=== PATIENT | female | born 1980 | race Caucasian/White ===

== ENCOUNTER 2021-05-20 10:53 | Outpatient (CLI) | payer BC, SELFPAY ==
[2021-05-20 11:21] LABS: Hematocrit 39.5 % (35.0-49.0); Mean Corpuscular HGB Conc 32.9 g/dL (32.0-36.0); Mean Corpuscular Hemoglobin 29.5 pg (27.0-31.0); Mean Corpuscular Volume 89.6 fL (78.0-102.0); Mean Platelet Volume 8.6 fl (9.2-11.8); Platelet Count Result 215 K/mm3 (150-420); Red Blood Count 4.41 M/mm3 (4.20-5.40); White Blood Count 5.1 K/mm3 (4.8-10.8)
== END 2021-05-20 10:54 | disposition home or self-care (01) ==
LOC: CHSLAB 10:58
PROVIDERS: PCP Family Medicine; Visit Provider Student in an Organized Health Care Education/Training Program
DX: N93.9 Abnormal uterine and vaginal bleeding, unspecified (principal); N39.3 Stress incontinence (female) (male)
CPT/HCPCS: 36415; 85027; 87086

== ENCOUNTER 2021-05-23 00:17 | Day surgery (SDC) | payer BC, SELFPAY ==
[2021-05-15 14:42] VITALS: BMI 25.8
--- NOTE | 2021-05-15 14:53 | PC.NURSE ---
Report to the Outpatient Waiting Room, entrance under the green pavilion located off [facility], at time 1000 on date 05/23/21. OR Time: 1200. - You and your visitor will be asked a series of questions to screen for COVID 19 for your protection. - A mask is required within the hospital. One visitor will be allowed to accompany the patient into the hospital. Patients visitor will be instructed to remain with patient at all times or leave the building. We will allow the visitor to come back to the postoperative area when patient is ready. Preoperative COVID Testing Requirements: No COVID Test needed if: (proof is required; if not received patient will have Rapid Test prior to entry) - Patient has received COVID Vaccine at least 14 days prior to procedure date or - Patient has positive COVID test result within last 90 days of surgery date. COVID Test needed if above criteria is not met Patients may have clear liquids (water, carbonated beverages, clear teas, apple juice) until 3 hours prior to surgery with a maximum of 20 ounces. - No food from midnight until time of surgery Take the following medications with a SIP of water the morning of surgery: NONE Medications to discontinue per physician: VITAMINS/SUPPLEMENTS Date to take last dose: 05/19/21 Please no make-up, nail azeri, hairspray, perfume, deodorant, or body powder the day of surgery. No jewelry (including any body piercings) or valuables the day of surgery, leave them at home. Please take a shower or bath the night before, or the morning of, surgery with an antibacterial soap. Wear comfortable, loose fitting clothing. - Jewelry must be removed prior to entering the operating room. Rings and piercings that are not removed may be cut off. - The hospital will not accept responsibility for valuables. - Please leave all valuables, including medications, at home the day of surgery. If you are going home after surgery, a licensed jinrikisha driver must drive you home. - NO public transportation without another adult. - We recommend that an adult stay with you for 24 hours following discharge. - We also recommend that you do not drive, make important decision, drink alcoholic beverages, or take any drugs that were not prescribed by your health care provider for at least 24 hours after your discharge time. Follow any additional instructions given to you from your surgeon. Telephone instructions given to HUNTER REESE and asked if any additional questions and then verbalized understanding. Patient advised to call surgeon office or pre surgery nurse liaison [phone] if any additional questions.
--- NOTE | 2021-05-22 09:11 | PM.IMHP ---
H&P: HPI History of Present Illness Date/Time: 05/22/21 09:11 Chief Complaint: abnormal uterine bleeding Narrative: 40 yo who presents for robotic TLH/BS, TVT, and cystoscopy for AUB and TERRANCE. Pt has been dealing with heavy painful menses for some. Pt has tried hormonal contraceptives and currently has an IUD in place. Pt continues to have heavy bleeding. Pt declined endometrial ablation and preferred hysterectomy. Pt also complaining of stress urinary incontinence. Review of Systems Cardiovascular: Cardiovascular: Denies chest pain, Denies leg edema, Denies palpitations, Denies dyspnea and Denies dyspnea on exertion Respiratory: Respiratory: Denies cough, Denies dyspnea and Denies dyspnea on exertion Gastrointestinal: Gastrointestinal: Denies abdominal pain, Denies constipation, Denies diarrhea, Denies nausea and Denies vomiting Genitourinary: Genitourinary: Denies hematuria, Denies urinary frequency, Denies dysuria, Denies pelvic pain, Denies urinary incontinence and Denies vaginal discharge Neurologic: Reports system reviewed and no additional complaints, except as documented Psychiatric: Psychiatric: Reports no additional psychiatric complaints Endocrine: Endocrine: Denies palpitations PMFSH Social History Social History Years smoked: 4 Smoking status: Current every day smoker Tobacco type: cigarettes Alcohol intake: never Substance use: never Substance use type: does not use Spiritual care concerns: No Meds Home Medications and Allergies Home Medications Medication Instructions Recorded Confirmed Type alprazolam 0.5 mg PO HS PRN 05/15/21 05/15/21 History buspirone 15 mg PO HS PRN 05/15/21 05/15/21 History fluoxetine 20 mg PO HS 05/15/21 05/15/21 History hydroxyzine HCl 50 mg PO HS PRN 05/15/21 05/15/21 History melatonin 10 mg PO HS PRN 05/15/21 05/15/21 History Allergies Allergy/AdvReac Type Severity Reaction Status Date / Time No Known Allergies Allergy Verified 05/15/21 14:38 Exam Const: General: no acute distress Eyes: EOM: EOMs intact bilaterally Neck: Neck: supple Thyroid: thyroid normal Chest: Breast/axilla inspection: normal inspection of the breasts Breast/axilla palpation: normal palpation of the breasts, normal palpation of the axillae and no axillary lymphadenopathy Resp: Effort & Inspection: normal respiratory effort Auscultation: clear to auscultation bilaterally Cardio: Rate: regular rate Rhythm: regular rhythm GI: Inspection: non-distended GI Palp: Yes Soft to palpation, No Tenderness to palpation present (GI) and No Guarding due to palpation present (GI) Auscultation: normal bowel sounds : General: No bladder normal to palpation External Female Exam: normal external appearance Speculum Exam - Vagina: normal vaginal discharge and No vaginal bleeding Speculum Exam - Cervix: nontender Bimanual exam- vagina & uterus: No bladder normal to palpation and No Cervical tenderness present OB/external & speculum: No vaginal bleeding Skin: General skin exam: normal color and no rashes or lesions noted Neuro: Cognition (Neuro): normal cognition Speech: normal speech Extrem: General: normal to inspection and no edema Psych: Mental Status: mental status grossly normal Affect: normal affect Assessment and Plan Assessment and plan (1) Abnormal uterine bleeding (AUB): Code(s): N93.9 - Abnormal uterine and vaginal bleeding, unspecified Status: Acute Assessment and Plan: pt with long history of heavy painful menses currently has IUD with heavy break trhough bleeding failed hormonal contraceptives Pt declined endometrial ablation pelvic US shows uterus measuring 8.6x4.3x2.9 cm. IUD seen within [facility] plan for robotic TLH/BS (2) TERRANCE (stress urinary incontinence, female): Code(s): N39.3 - Stress incontinence (female) (male) Status: Acute Assessment and Plan: pt complaining of bothersome TERRANCE discussed lifestyle
[2021-05-23] VITALS (10 sets, daily range): BP systolic 104–132; BP diastolic 64–82; PULSE 73–106; RESP 16–20; TEMP 36.4–37.3; O2SAT 92–98
[2021-05-23] MEDS: ACETAMINOPHEN 500 MG TABLET 1000 MG PO (10:07)
[2021-05-23] MEDS: LACTATED RINGERS 1,000 ML 30 ML IV CONT ×2 (10:35→14:26)
[2021-05-23] MEDS: KETOROLAC 15 MG/ML VIAL (*BKC) IV PUSH (10:52)
--- NOTE | 2021-05-23 11:08 | WPDANESEPPF ---
Anes - Initial Pre Proc Eval Procedure: Operation Date: 05/23/21 12:00 Proposed Procedures p Robotic Total Vaginal Hysterectomy with Bilateral Salpingectomy - Ramirez An MD s Cystoscopy - Ramirez An MD s Tension Vaginal Taping - Ramirez An MD Date/Time: 05/23/21 11:08 Surgeon: Ramirez An MD Pre Op Diagnosis: Abnormal Uterine Bleeding, Stress Incont Patient Data Age: 40 Gender: F Height: 1.68 m Weight: 78.8 kg Last Vital Signs Temp 37.3 C 05/23/21 10:01 Pulse 77 05/23/21 10:01 Resp 20 05/23/21 10:01 BP 107/69 05/23/21 10:01 Pulse Ox 98 05/23/21 10:01 Allergies Allergy/AdvReac Type Severity Reaction Status Date / Time No Known Allergies Allergy Verified 05/15/21 14:38 Home Medications Medication Instructions Recorded Confirmed Type alprazolam 0.5 mg PO HS PRN 05/15/21 05/23/21 History buspirone 15 mg PO HS PRN 05/15/21 05/23/21 History fluoxetine 20 mg PO HS 05/15/21 05/23/21 History hydroxyzine HCl 50 mg PO HS PRN 05/15/21 05/23/21 History melatonin 10 mg PO HS PRN 05/15/21 05/23/21 History Patient hx anesthesia problems: none Family hx anesthesia problems: none Results Review: All pre-operative results and documents have been reviewed as part of the pre-operative evaluation. [facility] Past Medical History Medical History (Updated 05/23/21 @ 11:08 by Rojas Craig MD) Anxiety Melanoma Overweight Surgical History Surgical History (Updated 05/23/21 @ 11:11 by Rojas Craig MD) H/O melanoma excision History of section Social History Social History Years smoked: 4 Smoking status: Current every day smoker Tobacco type: cigarettes Alcohol intake: never Substance use: never Substance use type: does not use Living arrangements: with family Spiritual care concerns: No Anes - Eval Final PreProcedure Day of Procedure 05/23/21 11:08 Patient weight: overweight Heart: regular rate and rhythm Lungs: clear to auscultation Airway: Mallampati scale class 1 Neurological: alert and oriented Last oral intake: >/= 8 hours ASA classification: II Emergent: no Anesthetic plan: proceed Anesthesia type and monitoring: general ETT and standard monitoring Results Review: All pre-operative results and documents have been reviewed as part of the pre-operative evaluation. Informed Consent: The patient's anesthetic plan and its attendant risks and benefits were discussed with the patient/family/POA. Questions were solicited and answers provided to the satisfaction of the patient/family/POA.
--- NOTE | 2021-05-23 11:48 | WPDHPUPDATE1 ---
History and Physical Update Update Date/Time: 05/23/21 11:48 History and Physical has been reviewed, including an updated exam of the patient. There are NO changes in the patient's condition. Risks, benefits, and alternatives have been discussed and questions answered. Patient agrees to proceed with procedure.
[2021-05-23] MEDS: ceFAZolin 2 GM/D5W 50 ML 2 GM/50 ML BAG IVPB (12:08)
[2021-05-23] MEDS: LIDO 1%/EPINEPHRINE 1:100,000 50 ML VIAL 30 ML INFILTRATE (13:10)
--- NOTE | 2021-05-23 14:14 | W.PM.PROC2 ---
Procedure Note - Detailed Date of Procedure 05/23/21 Pre-op Diagnosis Abnormal Uterine Bleeding, Stress Incont Post-op Diagnosis same Procedure Performed robotic assisted total laparoscopic hysterectomy and bilateral salpingectomy, TVT mid-urethral sling, cystoscopy Surgeon Ramirez An MD Anesthesia general Description of Procedure After the patient was appropriately consented she was taken to the operating room where she was transferred to the table in a dorsal supine position. General anesthesia was then induced with endotracheal intubation. The patient was transferred to a dorsal lithotomy position using adjustable yellow-fin stirrups. Her position was adjusted for appropriate support of her lower back and lower extremities. The patient was prepped and draped. A transurethral rooney catheter was place. The cervix was sequentially dilated and a PHILIP uterine manipulator placed in typical fashion about a 3cm JOZEF ring. Gloves were changed. After confirmation of a functioning orogastric tube, lidocaine was injected at Oliveira's point in the LUQ and a 5mm incision was made. A 5mm Optiview trocar was then inserted into the abdominal cavity under direct visualization and done so without complication. The abdomen was then insufflated with approximately 2-3L of CO2 establishing a pneumoperitoneum and the patient was placed in Trendelenburg position. Just above the umbilicus in the midline, a 10mm incision made after injection of lidocaine and a 12mm bladeless trocar advanced into the abdominal cavity under direct visualization without incident. We subsequently placed two robotic ports in a similar fashion, one in the left mid-quadrant and one in the right, 10cm lateral to the midline port. The robot was then docked. Attention was turned to the left pelvis. The left fallopian tube was removed by sequentially dividing the mesosalpinx towards the uterus sparing the ovary. The utero-ovarian ligament was desiccated and transected, as was the round ligament. The posterior peritoneal leaf was taken down to the JOZEF ring. The anterior leaf was developed as well as the start of the bladder flap. The left uterine artery was then skeletonized and desiccated and transected just above the level of the JOZEF ring. Attention was turned to the right pelvis. The right fallopian tube was removed by sequentially dividing the mesosalpinx towards the uterus sparing the ovary. The utero-ovarian ligament was desiccated and transected, as was the round ligament. The posterior peritoneal leaf was taken down to the JOZEF ring. The anterior leaf was developed as well as the start of the bladder flap. The right uterine artery was then skeletonized and desiccated and transected just above the level of the JOZEF ring. The bladder was then further dissected inferiorly over the level of the JOZEF ring. A circumferential colpotomy was made using monopolar current. The uterus, cervix, bilateral tubes were then delivered transvaginally. I then placed a single figure of eight suture of 0-vicryl in the left corner of the vaginal cuff. I then re-approximated the colpotomy with a running #1 PDO Quill suture in 2 layers. Following this dissection, the abdomen and pelvis were copiously irrigated and all surgical sites found to be hemostatic. Skin sites were reapproximated with 4-0 Vicryl in a subcuticular fashion. Steri-Strips were placed. Attention was then turned to the pelvis to complete the mid-urethral sling. The skin of the Mons was marked at the midline and two similar markings were made 2cm from the midline to the left and right directly above the pubic bone. The retropubic space was hydrodissected with lidocaine with epinephrine with a spinal needle. The anterior vaginal mucosa beneath the urethra was grasped with allis clamps. The submucosa was hydrodissected with lidocaine with epinephrine. An approximately 1.5 cm linear incision was made beneath the urethra. The submucosa layer was dissected sharply
--- NOTE | 2021-05-23 14:25 | PM.DS ---
DS: Admitting Diagnosis Discharge Date 05/24/21 Admitting Diagnosis abnormal uterine bleeding DS: Summary Hospital Course Hospital Course: Chrystal Han was admitted after robotic assisted total laparoscopic hysterectomy and bilateral salpingectomy, mid-urethral sling and cystoscopy for abnormal uterine bleeding and TERRANCE. The above procedure was performed with no complications. She is doing well post op. She states her pain is well controlled with PO medications. She reports minimal bleeding. She is ambulating up to the chair. Her rooney catheter was removed. She is tolerating PO without N/V. She reports passing flatus. Status at Discharge Overall status at discharge: patient is progressing back to baseline Time Spent with Patient Time attestation: Total time spent providing and/or coordinating discharge services: Time spent: Less than 30 minutes Exam Const: General: comfortable and no acute distress Limitations: no limitations Resp: Effort & Inspection: normal respiratory effort Auscultation: clear to auscultation bilaterally Cardio: Rate: regular rate Rhythm: regular rhythm GI: Inspection: non-distended GI Palp: Yes Soft to palpation, Yes Tenderness to palpation present (GI) (milder tenderness to deep palpation) and No Guarding due to palpation present (GI) Auscultation: normal bowel sounds Other: incisions C/D/I covered with dermabond Urinary Catheter: Urinary Catheter: urine clear Skin: General skin exam: normal color Extrem: General: normal to inspection Psych: Mental Status: mental status grossly normal Affect: normal affect DS: Data Data Completed and Pending Pending studies at discharge: Pending at discharge 05/23/21 13:15 Surgical [PTH] Routine Labs on day of discharge: Labs from last 24 hours 05/23/21 10:31 Blood Type A Positive Antibody Screen Negative Discharge Plan Discharge Patient Disposition: Home, Self-Care Patient Instructions: Laparoscopic Hysterectomy (DC), Bladder Sling for Women (DC) Stand Alone Forms: General Discharge Instructions Discharge Medications: New hydrocodone-acetaminophen 5-325 mg tablet 1 - 2 tablet PO Q6H PRN (Reason: pain) Qty: 30 RF: 0 hydrocodone-acetaminophen 5-325 mg tablet 1 - 2 tablet PO Q6H PRN (Reason: pain) Qty: 30 RF: 0 Continued hydroxyzine HCl 50 mg tablet 50 mg PO HS PRN (Reason: Insomnia) RF: 0 alprazolam 0.5 mg tablet 0.5 mg PO HS PRN (Reason: Anxiety) RF: 0 fluoxetine 20 mg capsule 20 mg PO HS RF: 0 buspirone 15 mg tablet 15 mg PO HS PRN (Reason: Anxiety) RF: 0 melatonin 10 mg Tablet 10 mg PO HS PRN (Reason: Insomnia) RF: 0
--- NOTE | 2021-05-23 15:55 | PC.NURSE ---
PT admitted to room 278 and surrounding area from pacu on a bed. PT alert and awake. Significant arrived and pt introductions and plan of care discussed per post op optical sales associate surgery, pain management, daily care activities. PT and significant other both recipients of such instructions and no barriers to learning identified. PT received such instructions per one to one discussion and demonstrations. PT verbalized understanding of such care.
[2021-05-23] MEDS: KETOROLAC 30 MG/ML VIAL (*BKC) IV PUSH (16:57)
[2021-05-23] MEDS: HYDROcodone/acetaminophen (*CRX) 5-325 MG TABLET 1 TAB PO ×2 (16:58→20:09)
[2021-05-23] MEDS: LACTATED RINGERS 1,000 ML 125 ML IV CONT (17:04)
[2021-05-24 00:15] VITALS: BP 105/54; PULSE 95; RESP 16; TEMP 36.7; O2SAT 100
[2021-05-24] MEDS: HYDROcodone/acetaminophen (*CRX) 5-325 MG TABLET 1 TAB PO ×3 (00:26→11:05)
[2021-05-24] MEDS: KETOROLAC 30 MG/ML VIAL (*BKC) IV PUSH (00:26)
[2021-05-24 04:13] VITALS: BP 104/64; PULSE 76; PULSE 95; RESP 16; TEMP 36.8; O2SAT 100
[2021-05-24 05:32] LABS: Basophils Percent Auto 0.1 % (0.2-1.2); Hematocrit 33.5 % (37.0-47.0); Hemoglobin 11.5 g/dL (12.0-15.0); Immature Granulocyte Absolute 0.03 K/mm3 (0.00-0.031); Immature Granulocyte Percent A 0.3 % (0-0.5); Lymphocytes Absolute Auto 0.96 K/mm3 (0.9-3.2); Lymphocytes Percent Auto 10.6 % (18.3-44.2); Mean Corpuscular HGB Conc 34.3 g/dl (32-36); Mean Corpuscular Hemoglobin 30.4 pg (26-34); Mean Corpuscular Volume 88.6 fl (80-100); Mean Platelet Volume 9.4 fl (7.4-10.4); Monocytes Absolute Auto 0.7 K/mm3 (0.1-0.6); Monocytes Percent Auto 8.1 % (2.6-8.5); Neutrophils Absolute Auto 7.3 K/mm3 (1.3-6.7); Neutrophils Percent Auto 80.9 % (45.5-73.1); Platelet Count Result 207 k/mm3 (150-375); Red Blood Count 3.78 M/mm3 (4.2-5.4); Red Cell Distribution Width 12.2 % (11.5-14.5)
[2021-05-24 05:43] LABS: Anion Gap 6 mmol/L (8-16); Blood Urea Nitrogen 14 mg/dL (7-17); Calcium 7.9 mg/dL (8.4-10.2); Carbon Dioxide 22 mmol/L (22-30); Chloride 107 mmol/L (98-107); Estimated CRCL calculation 84 ml/min; Estimated Glomerular Filt Rate > 60; Glucose 103 mg/dL (65-110); Potassium 4.1 mmol/L (3.4-5.0); Sodium 135 mmol/L (137-145)
--- NOTE | 2021-05-24 07:04 | PM.GYNPNOP ---
GRAVITY METER OPERATOR - A/P Postoperative Procedures: Procedures Operation Date: 05/23/21 12:00 Actual Procedure Side Surgeon p Robotic Total Vaginal Hysterectomy with Bilateral Salpingectomy Bilateral Ramirez An MD s Cystoscopy Ramirez An MD s Tension Vaginal Taping, IUD Removal Ramirez An MD Postoperative day: 1 Postoperative status: doing well Postoperative plan: routine post-op care, see orders and discharge Time Spent With Patient Time: Total time spent is greater than 50% in coordination of care (as documented) at patient's floor/unit and/or counseling patient: Time with patient: less than 15 minutes GRAVITY METER OPERATOR- PN:Subj Post-Op Subjective Date/time seen: 05/24/21 07:04 Subjective: patient reports feeling better, patient has no complaints and patient desires discharge Review of Systems Review of Systems: All systems reviewed & are unremarkable except as noted in HPI and below Exam Const: General: no acute distress Eyes: General: appearance normal, both eyes and all related structures Neck: Neck: supple and no JVD Thyroid: thyroid normal Resp: Effort & Inspection: normal respiratory effort Auscultation: clear to auscultation bilaterally Cardio: Rate: regular rate Rhythm: regular rhythm GI: Inspection: non-distended GI Palp: Yes Soft to palpation, No Tenderness to palpation present (GI) and No Guarding due to palpation present (GI) Auscultation: normal bowel sounds : General: Yes bladder normal to palpation External Female Exam: normal external appearance Speculum Exam - Vagina: normal vaginal discharge and No vaginal bleeding Speculum Exam - Cervix: nontender Bimanual exam- vagina & uterus: bladder normal to palpation and No Cervical tenderness present OB/external & speculum: No vaginal bleeding Skin: General skin exam: no rashes or lesions noted Extrem: General: normal to inspection and no edema Psych: Mental Status: mental status grossly normal Affect: normal affect GRAVITY METER OPERATOR - PN: Obj Data Vital Signs Vital Signs: Vital Signs - 24 hr 05/23/21 10:01 05/23/21 14:26 05/23/21 14:40 Temperature 99.1 F 97.9 F Pulse Rate 77 106 H 83 Respiratory Rate 20 20 16 Blood Pressure 107/69 132/76 113/79 Pulse Oximetry 98 96 98 05/23/21 14:55 05/23/21 15:10 05/23/21 15:25 Temperature Pulse Rate 89 77 79 Respiratory Rate 18 18 18 Blood Pressure 119/77 115/72 118/78 Pulse Oximetry 97 92 93 05/23/21 15:40 05/23/21 15:55 05/23/21 18:55 Temperature 98.3 F 97.5 F L Pulse Rate 75 73 100 Respiratory Rate 16 18 18 Blood Pressure 117/82 105/72 122/75 Pulse Oximetry 93 95 05/24/21 00:15 05/24/21 04:13 Temperature 98.0 F 98.3 F Pulse Rate 95 95 Respiratory Rate 16 16 Blood Pressure 105/54 L 104/64 Pulse Oximetry 100 100 Intake/Output Intake/Output: Intake & Output 05/21/21 05/22/21 05/23/21 05/24/21 23:59 23:59 23:59 23:59 Intake Total 350 800 Output Total 480 900 Balance -130 -100 Meds/Results Medications: Active Medications Generic Name Dose Route Start Last Admin Trade Name Freq PRN Reason Stop Dose Admin Hydrocodone Bitart/Acetaminophen 1 tab 05/23/21 15:53 05/24/21 04:44 Hydrocodone/Acetaminophen (*Crx) 5-325 Mg Tablet PO 1 tab Q3H PRN Administration Pain Rated 5 or Less Hydrocodone Bitart/Acetaminophen 1 tab 05/23/21 15:53 Hydrocodone/Acetaminophen (*Crx) 10-325 Mg Tablet PO Q3H PRN Pain Rated 6 or Greater Alprazolam 0.5 mg 05/23/21 15:53 Alprazolam (*Crx) 0.5 Mg Tablet PO HS PRN Anxiety Buspirone HCl 15 mg 05/23/21 15:53 Buspirone Hcl 5 Mg Tablet PO HS PRN Anxiety Fluoxetine HCl 20 mg 05/23/21 21:00 Fluoxetine Hcl 20 Mg Capsule PO HS KAZ Hydroxyzine HCl 50 mg 05/23/21 15:53 Hydroxyzine Hcl 25 Mg Tablet PO HS PRN Insomnia Lactated Ringer's 1,000 mls @ 125 mls/hr 05/23/21 15:53 05/23/21 17:04 Lr - Lactated Ringers Iv IV CONT 125 mls/hr .Q8H KAZ
[2021-05-24 08:25] VITALS: BP 111/73; PULSE 75; RESP 16; TEMP 36.3; O2SAT 96
[2021-05-24] MEDS: IBUPROFEN 600 MG TABLET PO (11:06)
== END 2021-05-24 11:10 | disposition home or self-care (01) ==
LOC: ANHSURGERY 14:26 → ANHOB2 16:03
PROVIDERS: PCP Family Medicine; Visit Provider Student in an Organized Health Care Education/Training Program
PROC: (CPT 57288; principal; 2021-05-23 12:00)
PROC: 0TJB8ZZ Inspection of Bladder, Via Natural or Artificial Opening Endoscopic (ICD-10-PCS; CPT 52000; 2021-05-23 12:00)
PROC: 0TSD0ZZ Reposition Urethra, Open Approach (ICD-10-PCS; CPT 57288; 2021-05-23 12:00)
DX: N93.9 Abnormal uterine and vaginal bleeding, unspecified (principal); N39.3 Stress incontinence (female) (male); N80.0 Endometriosis of uterus; N73.6 Female pelvic peritoneal adhesions (postinfective); N83.8 Other noninflammatory disorders of ovary, fallopian tube and broad ligament; N94.6 Dysmenorrhea, unspecified; F41.9 Anxiety disorder, unspecified; F17.210 Nicotine dependence, cigarettes, uncomplicated
CPT/HCPCS: 57288; 58571; S2900; 36415; 80048; 85025; 86850; 86900; 86901; 88307; 99199; A9270; C1771; J0690; J1100; J1170; J1200; J1885; J2250; J2405; J2704; J2710; J7030; J7120